=== PATIENT | male | born 1965 | race Caucasian/White ===

== ENCOUNTER → 2016-07-14 | Outpatient (CLI) | payer MEDICARE ==
[2016-07-14 09:03] LABS: HEMOGLOBIN 14.4 gm/dl (14.0-17.5); RED BLOOD COUNT 4.81 M/UL (4.20-5.50); WHITE BLOOD COUNT 10.3 K/UL (4.5-11.0)
[2016-07-14 09:23] LABS: BUN/CREATININE RATIO 23 (0-10)
== END ==
LOC: LAB 08:16
PROVIDERS: Family Medicine
DX: E11.9 Type 2 diabetes mellitus without complications (principal); E78.5 Hyperlipidemia, unspecified
CPT/HCPCS: 36415; 80048; 80061; 80076; 82043; 83036; 84443; 85027

== ENCOUNTER → 2020-05-30 | Outpatient (CLI) | payer MEDICARE ==
[~2020-05-30] MED LIST: TRAMADOL HCL50 MG PO
== END ==
LOC: KOH-I 13:30
DX: J32.9 Chronic sinusitis, unspecified (principal); J34.2 Deviated nasal septum; J34.1 Cyst and mucocele of nose and nasal sinus
CPT/HCPCS: 70486

== ENCOUNTER → 2020-10-08 | Day surgery (SDC) | payer MEDICARE ==
[~2020-10-08] VITALS: Ht 175.3 cm; Wt 99.8 kg
[~2020-10-08] MED LIST changes: +ACTOS TAB 15MG15 MG PO; +ALLERGY RELIEF10 MG PO; +CEPHALEXIN500 MG PO; +COMPLETE SENIO1 EACH PO; +FENOFIBRATE145 MG PO; +FISH OIL PO; +HYDROCODONE-IB1 EAC2 PO; +LISINOPRIL20 MG PO; +LOW DOSE ASPIRI81 MG PO; +PRAVASTATIN SOD40 MG PO; +PREDNISONE20 MG PO; +PROAIR DIGIHAL90 MCG INH; +STOOL SOFTENER100 MG PO
== END | disposition home or self-care (01) ==
LOC: OR 06:53
DX: J32.8 Other chronic sinusitis (principal); J34.3 Hypertrophy of nasal turbinates; J34.2 Deviated nasal septum; J34.89 Other specified disorders of nose and nasal sinuses; H91.93 Unspecified hearing loss, bilateral; I10 Essential (primary) hypertension; J45.909 Unspecified asthma, uncomplicated; E11.9 Type 2 diabetes mellitus without complications; G47.30 Sleep apnea, unspecified; E78.00 Pure hypercholesterolemia, unspecified; Z88.6 Allergy status to analgesic agent; Z79.84 Long term (current) use of oral hypoglycemic drugs; Z79.82 Long term (current) use of aspirin; Z79.899 Other long term (current) drug therapy
CPT/HCPCS: 82962; C1726; J0171; J0690; J1100; J1170; J2001; J2250; J2405; J2704; J2710; J3010; J7030; J7120